=== PATIENT | female | born 1990 | race Caucasian/White ===

== ENCOUNTER 2017-06-14 06:48 | Day surgery (SDC) | payer OTHER ==
[2016-04-16 22:03] VITALS: BMI 28.0
[2017-06-14 07:58] VITALS: O2SAT 100
[2017-06-14] MEDS ORDERED: Propofol 10 mg/ml Inj (20 ML) ONE ×2 (09:23→09:40)
--- NOTE | 2017-06-14 09:26 | CP.SDSHP ---
Same Day Surgery H & P - History Proposed Procedure: Colonoscopy Pre-Op Diagnosis: rectal bleeding - Allergies Allergies: Allergies No Known Allergies Allergy (Verified 04/16/16 22:06) - Physical Exam General Appearance: NAD Vital Signs: Vital Signs 06/14/17 07:43 Temperature 98.6 F Pulse Rate 77 Respiratory 20 Rate Blood Pressure 104/62 O2 Sat by Pulse 100 Oximetry Mental Status: Alert & Oriented x3 Neuro: WNL Heart: WNL Lungs: WNL GI: WNL - {Optional Preform as Required} Abdomen: WNL - Impression Pt. Evaluated Today:Candidate for Anesthesia & Procedure: Yes - Date & Time Date: 06/14/17 Time: 09:26 Short Stay Discharge - Short Stay Discharge Admitting Diagnosis/Reason for Visit: BLOOD IN STOOL Disposition: HOME/ ROUTINE
[2017-06-14 10:16] VITALS: TEMP 97.8
[2017-06-14 10:24] VITALS: BP 102/61; PULSE 80; RESP 18
== END 2017-06-14 10:38 | disposition home or self-care (01) ==
LOC: C.ENDO 06:48
PROVIDERS: ATTEND Internal Medicine Gastroenterology
DX: K64.8 Other hemorrhoids (principal)
CPT/HCPCS: 45380; 84703; 88305; J2704; J3010